=== PATIENT | female | born 1985 | race Caucasian/White ===

== ENCOUNTER 2019-12-17 08:56 | Outpatient (RCR) | payer OTHER, SELFPAY ==
[2019-12-17] MEDS: RHO(D) IMMUNE GLOBULIN 300 MCG SYRINGE IM (13:15)
== END 2020-03-06 13:18 | disposition home or self-care (01) ==
LOC: ANHLAB 08:56
PROVIDERS: PCP Family Medicine; Visit Provider Obstetrics & Gynecology
DX: O46.90 Antepartum hemorrhage, unspecified, unspecified trimester (principal); Z29.13 Encounter for prophylactic Rho(D) immune globulin; O36.0990 Maternal care for other rhesus isoimmunization, unspecified trimester, not applicable or unspecified; Z3A.00 Weeks of gestation of pregnancy not specified
CPT/HCPCS: 36415; 90384; 96372; J2790

== ENCOUNTER 2020-03-07 12:03 | Outpatient (RCR) | payer OTHER, SELFPAY ==
[2020-03-09] MEDS: RHO(D) IMMUNE GLOBULIN 300 MCG SYRINGE IM (13:16)
== END 2020-06-05 23:59 | disposition home or self-care (01) ==
LOC: ANHLAB 12:03
PROVIDERS: PCP Family Medicine; Visit Provider Obstetrics & Gynecology
DX: Z29.13 Encounter for prophylactic Rho(D) immune globulin (principal); O36.0990 Maternal care for other rhesus isoimmunization, unspecified trimester, not applicable or unspecified; Z3A.00 Weeks of gestation of pregnancy not specified
CPT/HCPCS: 36415; 85461; 90384; 96372; J2790

== ENCOUNTER 2020-04-22 10:00 | Outpatient (RCR) | payer OTHER, SELFPAY ==
[2020-04-06 10:51] VITALS: BP 127/77; PULSE 85
[2020-04-22 10:32] VITALS: BP 116/80; PULSE 81
== END 2020-05-24 07:50 | disposition home or self-care (01) ==
LOC: ANHOBOP 10:00
PROVIDERS: PCP Family Medicine; Visit Provider Obstetrics & Gynecology
DX: O36.5930 Maternal care for other known or suspected poor fetal growth, third trimester, not applicable or unspecified (principal); Z3A.32 32 weeks gestation of pregnancy; Z3A.34 34 weeks gestation of pregnancy
CPT/HCPCS: 59025

== ENCOUNTER 2020-04-27 13:28 | Outpatient (CLI) | payer OTHER, SELFPAY ==
[2020-05-02 14:09] LABS: Toxoplasma IgG Antibody <7.20 IU/mL (<7.20)
[2020-05-02 14:33] LABS: Toxoplasma IgM Antibody <8.00 AU/mL (<8.00)
[2020-05-02 16:24] LABS: CMV IgM Antibody <30.00 AU/mL (<30.00)
[2020-05-03 12:38] LABS: CMV IgG Antibody <0.60 U/mL (<0.60)
== END 2020-04-27 13:29 | disposition home or self-care (01) ==
PROVIDERS: PCP Family Medicine
DX: O09.619 Supervision of young primigravida, unspecified trimester (principal)
CPT/HCPCS: 36415; 86644; 86645; 86777

== ENCOUNTER 2020-05-22 14:06 | Outpatient (CLI) | payer OTHER, SELFPAY ==
[2020-05-22 14:34] LABS: Hematocrit 34.4 % (37.0-47.0); Mean Corpuscular HGB Conc 34.9 g/dl (32-36); Mean Corpuscular Hemoglobin 31.8 pg (26-34); Mean Corpuscular Volume 91.2 fl (80-100); Platelet Count Result 237 k/mm3 (150-375); Red Blood Count 3.77 M/mm3 (4.2-5.4); Red Cell Distribution Width 13.5 % (11.5-14.5); White Blood Count 8.9 K/mm3 (4.5-10.0)
[2020-05-23 07:13] LABS: Rapid Plasma Reagin Non-Reactive (NonReactive)
== END 2020-05-22 14:07 | disposition home or self-care (01) ==
PROVIDERS: PCP Family Medicine; Visit Provider Obstetrics & Gynecology
DX: Z01.818 Encounter for other preprocedural examination (principal)
CPT/HCPCS: 36415; 85027; 86592; 86850; 86900; 86901

== ENCOUNTER 2020-05-23 10:06 | Inpatient (IN) | payer OTHER, SELFPAY ==
--- NOTE | 2020-05-04 13:07 | PC.NURSE ---
VERIFIED WITH OR SCHEDULE AND PATIENT--C/S ON 05/23/20 AT 1200 FOR BREECH PATIENT GIVEN REQUISITION FOR LAB DRAW ON 05/22/20 NOT AVAILABLE AT TIME OF PREADMIT
[2020-05-23] VITALS (55 sets, daily range): BP systolic 122–155; BP diastolic 76–101; PULSE 66–120; RESP 14–24; TEMP 36.1–36.9; O2SAT 92–100; BMI 28.3
--- NOTE | 2020-05-23 10:06 | LDADM ---
This patient, Vicki Lopez, was admitted to Labor/Delivery/Recovery 119 on 05/23/20 at 10:06. Plans for labor, pain management and were discussed with patient. Patient/family oriented to hospital policies and general routines including ID bracelet, bed and alarms, visiting hours, pain management, procedures, bathroom and other care routines, personal items, smoking policy, room service/diet and guest tray routines, security routines, and visiting hours. Patient/Family are encouraged to report perceived risks to care and to ask questions if they do not understand what they are told or what they should do. See OBIX for further documentation.
[2020-05-23] MEDS: LACTATED RINGERS 1,000 ML 999 ML IV CONT ×2 (10:44→11:50)
--- NOTE | 2020-05-23 10:45 | WPDANESEPPF ---
Anes - Initial Pre Proc Eval Procedure: Operation Date: 05/23/20 12:00 Proposed Procedures p Repeat Section - Narendra Sandoval MD Date/Time: 05/23/20 10:45 Surgeon: Narendra Sandoval MD Pre Op Diagnosis: Scheduled Patient Data Age: 35 Gender: F Height: Weight: Last Vital Signs Pulse 79 05/23/20 10:43 BP 138/90 05/23/20 10:43 Allergies Allergy/AdvReac Type Severity Reaction Status Date / Time No Known Allergies Allergy Verified 05/04/20 12:42 Home Medications Medication Instructions Recorded Confirmed Type PNV cmb#95-ferrous fumarate-FA 1 tablet PO DAILY 05/04/20 05/04/20 History [] aspirin [Adult Low Dose Aspirin] 81 mg PO DAILY 05/04/20 05/04/20 History cetirizine [Zyrtec] 10 mg PO DAILY 05/04/20 05/04/20 History escitalopram oxalate [Lexapro] 10 mg PO DAILY 05/04/20 05/04/20 History Patient hx anesthesia problems: none Family hx anesthesia problems: none PMFSH Past Medical History Medical History (Updated 05/23/20 @ 10:45 by Greg Yee MD) HTN (hypertension) Surgical History Surgical History (Updated 05/23/20 @ 10:45 by Greg Yee MD) H/O arthroscopic knee surgery Hx of tonsillectomy Family History Family History Father Brain cancer Mother Breast cancer Grandparent Breast cancer Social History Social History Substance use: never Spiritual care concerns: No Anes - Eval Final PreProcedure Day of Procedure 05/23/20 10:45 Patient weight: overweight Heart: regular rate and rhythm Lungs: clear to auscultation Airway: Mallampati scale class 1 Neurological: alert and oriented Last oral intake: >/= 8 hours ASA classification: II Emergent: no Anesthetic plan: proceed Anesthesia type and monitoring: regional spinal and standard monitoring Informed Consent: The patient's anesthetic plan and its attendant risks and benefits were discussed with the patient/family/POA. Questions were solicited and answers provided to the satisfaction of the patient/family/POA.
--- NOTE | 2020-05-23 12:02 | PM.IMHP ---
H&P: HPI History of Present Illness Chief complaint: Scheduled Narrative: 35 y/o G1 at 39 1/7 weeks here for . Has a septate uterus and persistent breech presentation. 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 Growth most recently in 6th percentile. She has been followed by MFM. Review of Systems Review of Systems: All systems reviewed & are unremarkable except as noted in HPI and below PMFSH Past Medical History Medical History HTN (hypertension) Surgical History Surgical History H/O arthroscopic knee surgery Hx of tonsillectomy Family History Family History Father Brain cancer Mother Breast cancer Grandparent Breast cancer Social History Social History Smoking status: Former smoker Smoking end date: 10/05/19 Substance use: never Spiritual care concerns: No Meds Home Medications and Allergies Home Medications Medication Instructions Recorded Confirmed Type PNV cmb#95-ferrous fumarate-FA 1 tablet PO DAILY 05/04/20 05/23/20 History [] aspirin [Adult Low Dose Aspirin] 81 mg PO DAILY 05/04/20 05/23/20 History cetirizine [Zyrtec] 10 mg PO DAILY 05/04/20 05/23/20 History escitalopram oxalate [Lexapro] 10 mg PO DAILY 05/04/20 05/23/20 History Allergies Allergy/AdvReac Type Severity Reaction Status Date / Time No Known Allergies Allergy Verified 05/04/20 12:42 Vital Signs Vital Signs - 24 hr 05/23/20 10:43 05/23/20 10:46 05/23/20 11:01 Pulse Rate 79 81 73 Blood Pressure 138/90 136/86 131/90 05/23/20 11:16 05/23/20 11:31 05/23/20 11:46 Pulse Rate 72 73 66 Blood Pressure 132/83 124/87 124/81 Exam Const: Orientation/consciousness: patient oriented x3 Other: Well-developed, well-nourished female in no acute distress. Neck: Thyroid: thyroid normal Lymphatic: no lymphadenopathy noted (in neck, axilla or inguinal nodes) Resp: Effort & Inspection: normal respiratory effort Auscultation: clear to auscultation bilaterally Cardio: Rate: regular rate Rhythm: regular rhythm Heart sounds: S1 normal heart sound present and S2 normal heart sound present GI: Other: ABD soft, nontender, gravid. Breech presentation on bedside ultrasound. NST reactive. TOCO: no contractions. : General: Yes no CVA tenderness Other: Cervix closed, thick Back/Spine/Pelvis: Back: no CVA tenderness Skin: General skin exam: normal color and no rashes or lesions noted Neuro: General: patient oriented x3 Extrem: Other: Extremities: nontender with no edema Psych: Mental Status: mental status grossly normal Affect: normal affect Assessment and Plan Assessment and plan (1) Breech presentation: Code(s): O32.1XX0 - Maternal care for breech presentation, not applicable or unspecified Status: Acute Assessment and Plan: I have offered primary LTCS. She understands risks of surgery to include risks of anesthesia, risks of pain, infection, bleeding, blood products, thromboembolic phenomena and damage to adjacent structures such as bowel, bladder, ureters, blood vessels and nerves. She understands all these risks and elects to proceed with surgery. (2) Term : Code(s): Z34.90 - Encounter for supervision of normal , unspecified, unspecified trimester Status: Acute (3) Chronic hypertension affecting : Code(s): O10.919 - Unspecified pre-existing hypertension complicating , unspecified trimester Status: Acute (4) Club foot, , affecting care of mother, antepartum: Code(s): O35.8XX0 - Maternal care for other (suspected) abnormality and damage, not applicable or unspecified Status: Acute
[2020-05-23] MEDS: ceFAZolin 2 GM/D5W 50 ML 2 GM/50 ML BAG IVPB (12:10)
[2020-05-23] MEDS: OXYTOCIN 40 UNITS in LACTATED RINGERS 1,000 ML 100 ML IV CONT (12:50)
--- NOTE | 2020-05-23 13:28 | PM.OBPRVD ---
OB - Delivery Note Procedure Delivery date: 05/23/20 Procedure: Procedures Operation Date: 05/23/20 12:00 <No data on this case meets the specified criteria> Primary low transverse delivery. Delivery monitor: external FHT and external uterine Route of delivery: (Primary LTCS) Specimen: Yes (cord blood) Estimated blood loss (mL): 660 Anesthesia type: Spinal Disposition: PACU Complications: None Narrative: The patient was taken to the operating room where she was prepared and draped in the usual sterile fashion in dorsal supine position with a leftward tilt. She received cefazolin preoperatively. Spinal anesthesia was found to be adequate. A Pfannenstiel skin incision was made and carried through to the underlying layer of the fascia. The fascia was incised in the midline and the incision was extended laterally. The fascia was dissected free of the underlying rectus muscles. The rectus muscles were in the midline. The peritoneum was identified, tented up and entered sharply. The peritoneal incision was extended superiorly and inferiorly with good visualization of the bladder. The bladder blade was placed. The vesicouterine peritoneum was identified, tented up and entered sharply. The incision was extended laterally and the bladder flap was developed. The bladder blade was replaced. The uterus was then incised sharply in a transverse fashion along the lower uterine segment. The incision was extended laterally. The 's breech was delivered atraumatically to the sterile field to the level of the scapulae. The arms were swept across the chest and delivered. The head was gently flexed and easily delivered. The nose and mouth were bulb suctioned. After a delay, the cord was clamped and cut. The was handed off the field. Cord blood was collected. The placenta was removed manually and was passed off the field. The uterus was exteriorized and cleared of all clots and debris. The uterus was inspected and found to demonstrate a partial septum. The had occupied the right horn of the uterus. The ovaries and tubes were normal bilaterally. The uterine incision was reapproximated using 0 Monocryl in a running, locked fashion. A second, imbricating layer of the same suture was placed. Excellent hemostasis resulted as did excellent reapproximation of the normal anatomy. The uterus was returned the abdomen. The pelvis was irrigated copiously with warmed normal saline. Rigorous hemostasis was assured. The fascial layer was reapproximated using 0 Vicryl in a running fashion. The skin was closed with a running, subcuticular stitch of 4 0 Vicryl. Dermaflex was applied externally. Sponge, lap, needle and instrument counts were correct. The patient was taken to the recovery room in stable condition. The infant went to the nursery in stable condition. I was present and scrubbed the entire procedure. [place] [facility] Date of : 05/23/20 Time of : 12:38 Weeks of gestation at delivery: 39 gender: Female Weight (pounds): 5 Weight (ounces): 15 presentation: breech cord vessel description: 3 Vessels and Nuchal Cord score one minute: 7 score five minutes: 9
--- NOTE | 2020-05-23 13:33 | PM.OBDSVD ---
DS: Admitting Diagnosis Admitting Diagnosis Admitting Diagnosis: IUP at 39 1/7 weeks Breech presentation Muellerian anomaly Bilateral clubfeet Chronic hypertension <Narendra Sandoval MD - Last Filed: 05/23/20 13:36> DS: Discharge Diagnosis Discharge Diagnosis (1) Club foot, , affecting care of mother, antepartum: Code(s): O35.8XX0 - Maternal care for other (suspected) abnormality and damage, not applicable or unspecified <Narendra Sandoval MD - Last Filed: 05/23/20 13:36> Status: Acute <Narendra Sandoval MD - Last Filed: 05/23/20 13:36> (2) Chronic hypertension affecting : Code(s): O10.919 - Unspecified pre-existing hypertension complicating , unspecified trimester <Narendra Sandoval MD - Last Filed: 05/23/20 13:36> Status: Acute <Narendra Sandoval MD - Last Filed: 05/23/20 13:36> (3) Term : Code(s): Z34.90 - Encounter for supervision of normal , unspecified, unspecified trimester <Narendra Sandoval MD - Last Filed: 05/23/20 13:36> Status: Acute <Narendra Sandoval MD - Last Filed: 05/23/20 13:36> (4) Breech presentation: Code(s): O32.1XX0 - Maternal care for breech presentation, not applicable or unspecified <Narendra Sandoval MD - Last Filed: 05/23/20 13:36> Status: Acute <Narendra Sandoval MD - Last Filed: 05/23/20 13:36> (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 - Other congenital malformations of uterus <Narendra Sandoval MD - Last Filed: 05/23/20 13:36> Status: Acute <Narendra Sandoval MD - Last Filed: 05/23/20 13:36> OB - DS: Summary OB Procedures : None <Andrea Maynard MD - Last Filed: 05/25/20 07:21> OB Procedures Intrapartum: low cervical, transverse <Andrea Maynard MD - Last Filed: 05/25/20 07:21> OB Procedures: : None <Andrea Maynard MD - Last Filed: 05/25/20 07:21> Peripartum Data Laceration description: None <Andrea Maynard MD - Last Filed: 05/25/20 07:21> Procedures: Procedures Operation Date: 05/23/20 12:00 <No data on this case meets the specified criteria> <Narendra Sandoval MD - Last Filed: 05/23/20 13:36> complications: none <Andrea Maynard MD - Last Filed: 05/25/20 07:21> Status at Discharge Functional status at discharge: independent ambulation <Andrea Maynard MD - Last Filed: 05/25/20 07:21> Overall status at discharge: patient is back to baseline <Andrea Maynard MD - Last Filed: 05/25/20 07:21> Time Spent with Patient Time attestation: Total time spent providing and/or coordinating discharge services: <Narendra Sandoval MD - Last Filed: 05/23/20 13:36> Time spent: Less than 30 minutes <Andrea Maynard MD - Last Filed: 05/25/20 07:21> Discharge Plan Discharge Attending physician on discharge: Narendra Sandoval <Narendra Sandoval MD - Last Filed: 05/23/20 13:36> Narendra Sandoval <Andrea Maynard MD - Last Filed: 05/25/20 07:21> Discharging Clinician: Narendra Sandoval <Narendra Sandoval MD - Last Filed: 05/23/20 13:36> Narendra Sandoval <Andrea Maynard MD - Last Filed: 05/25/20 07:21> Patient Disposition: Home, Self-Care <Narendra Sandoval MD - Last Filed: 05/23/20 13:36> Activity: may shower, may drive after 2 weeks and pelvic rest <Narendra Sandoval MD - Last Filed: 05/23/20 13:36> may shower, may drive after 2 weeks and pelvic rest <Andrea Maynard MD - Last Filed: 05/25/20 07:21> Diet: regular <Narendra Sandoval MD - Last Filed: 05/23/20 13:36> regular <Andrea Maynard MD - Last Filed: 05/25/20 07:21> Wound Care Instructions: incision open to air <Narendra Sandoval MD - Last Filed: 05/23/20 13:36> incision open to air <Andrea Maynard MD - Last Filed: 05/25/20 0
--- NOTE | 2020-05-23 16:05 | OBPPTRN ---
Patient transferred to post room # 291 via stretcher. Oriented to unit, room, information board, rooming in, admission packet and security measures. Patient verbalizes understanding.
[2020-05-23] MEDS: DEXTROSE 5%/0.45% SOD CHL 1,000 ML 125 ML (19:23)
[2020-05-24] VITALS: BP 135/80; PULSE 80; RESP 16; TEMP 36.8; O2SAT 99
[2020-05-24] MEDS: KETOROLAC 30 MG/ML VIAL (*BKC) IV PUSH (05:13)
[2020-05-24 05:30] VITALS: BP 123/88; PULSE 88; RESP 16; TEMP 36.4; O2SAT 98; O2SAT 99
[2020-05-24 05:43] LABS: Basophils Absolute Auto 0.1 K/mm3 (0.0-0.1); Basophils Percent Auto 0.4 % (0.2-1.2); Eosinophils Percent Auto 0.2 % (0-4.4); Hematocrit 32.5 % (37.0-47.0); Hemoglobin 11.1 g/dL (12.0-15.0); Immature Granulocyte Absolute 0.07 K/mm3 (0.00-0.031); Immature Granulocyte Percent A 0.5 % (0-0.5); Lymphocytes Absolute Auto 1.65 K/mm3 (0.9-3.2); Lymphocytes Percent Auto 11.5 % (18.3-44.2); Mean Corpuscular HGB Conc 34.2 g/dl (32-36); Mean Corpuscular Hemoglobin 31.7 pg (26-34); Mean Corpuscular Volume 92.9 fl (80-100); Mean Platelet Volume 11.3 fl (7.4-10.4); Monocytes Percent Auto 6.6 % (2.6-8.5); Neutrophils Absolute Auto 11.6 K/mm3 (1.3-6.7); Neutrophils Percent Auto 80.8 % (45.5-73.1); Platelet Count Result 208 k/mm3 (150-375); Red Cell Distribution Width 13.7 % (11.5-14.5); White Blood Count 14.3 K/mm3 (4.5-10.0)
--- NOTE | 2020-05-24 07:22 | WPDANLDNPN2 ---
Anes-Prog Note L&D-Neuraxial Date/Time: 05/24/20 07:22 Neuraxial medications: intrathecal PF morphine Opiod-related complaints: none Patient feedback: Patient satisfied with post-operative pain management.
--- NOTE | 2020-05-24 07:22 | WPDANLDPN2 ---
Anes-Prog Note L&D Date/Time: 05/24/20 07:22 Comfortable throughout: labor and delivery Neuraxial method: epidural Epidural/Spinal procedure site: clean & non-tender Neuro status: Neuro function grossly intact. Cardiovascular status: normal Respiratory status: normal Airway patency: baseline Mental status: baseline Post-Op hydration status: normal Vital Signs: Last Vital Signs Temp 36.4 C L 05/24/20 05:30 Pulse 88 05/24/20 05:30 Resp 16 05/24/20 05:30 BP 123/88 05/24/20 05:30 Pulse Ox 99 05/24/20 05:30 I/O: Intake & Output 05/23/20 05/23/20 05/24/20 15:59 23:59 07:59 Intake Total 3154 500 1000 Output Total 6173 951 1716 Balance 2069 -200 -1050 Post-procedural complaints: none Patient feedback: Patient satisfied with anesthetic care.
[2020-05-24 08:00] VITALS: BP 110/69; PULSE 79; RESP 18; TEMP 37.4
[2020-05-24] MEDS: ESCITALOPRAM OXALATE 10 MG TABLET PO (08:08)
[2020-05-24] MEDS: SIMETHICONE 80 MG TAB.CHEW PO (08:08)
[2020-05-24] MEDS: MULTIVIT/MIN/PREN/FOL AC/IRON TABLET 1 TAB PO (08:08)
[2020-05-24] MEDS: DOCUSATE SODIUM 100 MG CAPSULE PO (08:09)
[2020-05-24 11:46] VITALS: BP 130/78; PULSE 85; RESP 18; TEMP 36.9
--- NOTE | 2020-05-24 13:00 | PC.NURSE ---
Consult with pt., mother is pumping due to transfer. Mother is using her own Spectra pump. Offered hospital pump, mother wishes to use her pump. Mother is pumping one breast at a time. Discussed to pump both to save time and better stimulation. Instructions given on breast pump care and usage, pumping schedule, nipple care, and collection and storage of breast milk. Encouraged breast massage and manual expression to stimulate supply. Assessed patient for correct flange size, placement and draw. Patient verbalizes and demonstrates understanding of instructions.
[2020-05-24] MEDS: IBUPROFEN 600 MG TABLET PO ×2 (13:59→21:45)
--- NOTE | 2020-05-24 16:42 | PM.OBPNVD ---
OB - PN: Subj Subjective Date/time seen: 05/24/20 16:42 Narrative: Pain OK. Tolerating diet. Baby was transferred to [facility]. OB - PN: Obj Data Labs CBC & Chem 7: 05/24/20 05:26 Labs: Laboratory Results - last 24 hr 05/24/20 05:26 WBC 14.3 H RBC 3.50 L Hgb 11.1 L Hct 32.5 L MCV 92.9 MCH 31.7 MCHC 34.2 RDW 13.7 Plt Count 208 MPV 11.3 H Immature Gran % (Auto) 0.5 Neut % (Auto) 80.8 H Lymph % (Auto) 11.5 L [place] % (Auto) 6.6 Eos % (Auto) 0.2 Baso % (Auto) 0.4 Lymph # (Auto) 1.65 [place] # (Auto) 1.0 H Eos # (Auto) 0.0 Baso # (Auto) 0.1 Abs Immat Gran (auto) 0.07 H Absolute Neuts (auto) 11.6 H Absolute Nucleated RBC 0.0 Nucleated RBC % 0.0 OB - PN A/P Plan Comments: A: POD#1, doing well. P: Routine care. Exam Narrative: Exam Narrative: AVSS I/O OK ABD soft, nontender, fundus firm. Incision c/d/i. EXT nontender
--- NOTE | 2020-05-24 17:39 | PC.NURSE ---
Addendum entered by Venita Lake RN 05/24/20 17:40: Pt. left for [facility] at 1500. Original Note: Pt. out on pass to [facility] to see . at side.
[2020-05-24 21:30] VITALS: BP 125/82; PULSE 72; PULSE 85; RESP 14; RESP 18; TEMP 36.7; O2SAT 99
--- NOTE | 2020-05-24 22:44 | PC.NURSE ---
2105 Returned from pass. States baby is doing well.
[2020-05-25] MEDS: SIMETHICONE 80 MG TAB.CHEW PO ×2 (05:57→08:20)
[2020-05-25] MEDS: IBUPROFEN 600 MG TABLET PO (05:58)
[2020-05-25 08:00] VITALS: BP 129/81; PULSE 91; RESP 18; TEMP 36.1
[2020-05-25] MEDS: MULTIVIT/MIN/PREN/FOL AC/IRON TABLET 1 TAB PO (08:20)
[2020-05-25] MEDS: DOCUSATE SODIUM 100 MG CAPSULE PO (08:20)
[2020-05-25] MEDS: ESCITALOPRAM OXALATE 10 MG TABLET PO (08:20)
--- NOTE | 2020-05-25 10:08 | PC.NURSE ---
Self care discharge instructions given including follow up visit date and time. No questions or concerns voiced. at side.
[2020-05-28 09:51] VITALS: BP 145/95; PULSE 79; RESP 18; TEMP 36.6
== END 2020-05-25 11:05 | disposition home or self-care (01) | DRG 787 ==
LOC: ANHLDR 13:35 → ANHOB2 05-25 10:14 → ANHLDR 05-28 10:48 → ANHOB2 05-28 10:48
PROVIDERS: Admitting Provider Obstetrics & Gynecology; PCP Family Medicine; Visit Provider Student in an Organized Health Care Education/Training Program
PROC: 10D00Z1 Extraction of Products of Conception, Low, Open Approach (ICD-10-PCS; CPT 59514; principal; 2020-05-23 12:00)
DX: O32.1XX0 Maternal care for breech presentation, not applicable or unspecified (principal); O10.02 Pre-existing essential hypertension complicating childbirth; Z37.0 Single live birth; Z3A.39 39 weeks gestation of pregnancy; O35.8XX0 Maternal care for other (suspected) fetal abnormality and damage, not applicable or unspecified; O34.03 Maternal care for unspecified congenital malformation of uterus, third trimester; Q51.20 Other doubling of uterus, unspecified; O69.81X0 Labor and delivery complicated by cord around neck, without compression, not applicable or unspecified; O99.344 Other mental disorders complicating childbirth; F41.9 Anxiety disorder, unspecified
CPT/HCPCS: 36415; 85025; 85027; 86592; 86850; 86900; 86901; A9270; J0131; J0690; J1885; J2270; J2274; J2590; J7120

== ENCOUNTER → 2020-12-20 11:08 | Outpatient (CLI) | payer OTHER, SELFPAY ==
[2020-12-20 21:06] LABS: SARS-CoV-2 RNA PCR Negative
== END ==
PROVIDERS: PCP Family Medicine; Visit Provider Physician Assistant
DX: R68.89 Other general symptoms and signs (principal); Z20.822 Contact with and (suspected) exposure to COVID-19
CPT/HCPCS: C9803; U0003; U0005

== ENCOUNTER 2021-10-18 00:25 | Day surgery (SDC) | payer OTHER, SELFPAY ==
[2021-10-01 12:56] VITALS: BMI 23.4
[2021-10-18 08:34] VITALS: BP 113/77; PULSE 81; RESP 20; TEMP 36.8; O2SAT 99; BMI 25.0
[2021-10-18] MEDS: LACTATED RINGERS 1,000 ML 150 ML IV CONT (08:40)
--- NOTE | 2021-10-18 08:43 | WPDANESEPPF ---
Anes - Initial Pre Proc Eval Procedure: Operation Date: 10/18/21 09:30 Proposed Procedures p Esophagogastroduodenoscopy - Mukesh Segura MD Date/Time: 10/18/21 08:43 Surgeon: Mukesh Segura MD Pre Op Diagnosis: dysphagia Patient Data Age: 36 Gender: F Height: 1.7 m Weight: 72.3 kg Last Vital Signs Temp 36.8 C 10/18/21 08:34 Pulse 81 10/18/21 08:34 Resp 20 10/18/21 08:34 BP 113/77 10/18/21 08:34 Pulse Ox 99 10/18/21 08:34 Allergies Allergy/AdvReac Type Severity Reaction Status Date / Time No Known Allergies Allergy Verified 10/18/21 08:34 Home Medications Medication Instructions Recorded Confirmed Type PNV cmb#95-ferrous fumarate-FA 1 tablet PO DAILY 05/04/20 10/02/21 History [] cetirizine [Zyrtec] 10 mg PO DAILY 05/04/20 10/02/21 History escitalopram oxalate [Lexapro] 10 mg PO DAILY 05/04/20 10/02/21 History bupropion HCl 150 mg PO DAILY 10/02/21 10/02/21 History etonogestrel [Nexplanon] 1 implant SUBDERMAL ONCE 10/02/21 10/02/21 History Patient hx anesthesia problems: none Family hx anesthesia problems: none Results Review: All pre-operative results and documents have been reviewed as part of the pre-operative evaluation. [facility] Past Medical History Medical History HTN (hypertension) Surgical History Surgical History (Updated 10/18/21 @ 08:44 by Greg Yee MD) H/O arthroscopic knee surgery History of section Hx of tonsillectomy Family History Family History Father Brain cancer Mother Breast cancer Grandparent Breast cancer Social History Social History Years smoked: 10 Smoking status: Former smoker Tobacco type: cigarettes Smoking end date: 10/05/19 Alcohol intake: current Drinks per week: 6 Substance use: never Living arrangements: with family Spiritual care concerns: No Anes - Eval Final PreProcedure Day of Procedure 10/18/21 08:43 Patient weight: normal Heart: regular rate and rhythm Lungs: clear to auscultation Airway: Mallampati scale class II Neurological: alert and oriented Last oral intake: >/= 8 hours ASA classification: II Emergent: no Anesthetic plan: proceed Anesthesia type and monitoring: general GIVS and standard monitoring Results Review: All pre-operative results and documents have been reviewed as part of the pre-operative evaluation. Informed Consent: The patient's anesthetic plan and its attendant risks and benefits were discussed with the patient/family/POA. Questions were solicited and answers provided to the satisfaction of the patient/family/POA.
--- NOTE | 2021-10-18 09:06 | P.CONGI_ITS ---
Assessment and Plan Assessment and plan (1) Globus sensation: Code(s): R19.8 - Other specified symptoms and signs involving the digestive system and abdomen Status: Acute Assessment and Plan: Patient has a sensation of a pill stuck in her throat consistent with a globus phenomenon. Plan is for EGD to exclude any indications for acid reflux. Also to exclude organic disease in this area. If this is unremarkable a trial of PPI or Elavil may be of benefit. GI Consult Note Consult date/time: 10/18/21 09:06 HPI: Vicki Lopez is a 36 year old female Presents for EGD because of swallowing difficulties. Patient reports over last 2 months has the feeling of a pill being caught in her throat. She is able to swallow normally. She denies any weight loss. She has had no bleeding. She denies any heartburn. She has tried no medications for her discomfort. She presents today for an EGD to exclude organic disease. Review of Systems Review of Systems: All systems reviewed & are unremarkable except as noted in HPI and below PMFSH Past Medical History Medical History (Updated 10/18/21 @ 09:08 by Mukesh Segura MD) HTN (hypertension) Surgical History Surgical History (Updated 10/18/21 @ 08:44 by Greg Yee MD) H/O arthroscopic knee surgery History of section Hx of tonsillectomy Family History Family History Father Brain cancer Mother Breast cancer Grandparent Breast cancer Social History Social History Years smoked: 10 Smoking status: Former smoker Tobacco type: cigarettes Smoking end date: 10/05/19 Alcohol intake: current Drinks per week: 6 Substance use: never Living arrangements: with family Spiritual care concerns: No Meds Home Medications and Allergies Home Medications Medication Instructions Recorded Confirmed Type PNV cmb#95-ferrous fumarate-FA 1 tablet PO DAILY 05/04/20 10/02/21 History [] cetirizine [Zyrtec] 10 mg PO DAILY 05/04/20 10/02/21 History escitalopram oxalate [Lexapro] 10 mg PO DAILY 05/04/20 10/02/21 History bupropion HCl 150 mg PO DAILY 10/02/21 10/02/21 History etonogestrel [Nexplanon] 1 implant SUBDERMAL ONCE 10/02/21 10/02/21 History Allergies Allergy/AdvReac Type Severity Reaction Status Date / Time No Known Allergies Allergy Verified 10/18/21 08:34 Vital Signs Vital Signs - 24 hr 10/18/21 08:34 Temperature 98.2 F Pulse Rate 81 Respiratory Rate 20 Blood Pressure 113/77 Pulse Oximetry 99 Exam Narrative: Physical exam reveals patient be alert. Vital signs stable. HEENT exam is unremarkable. Patient is anicteric. Lungs are clear to a uscultation and percussion. Heart is without murmur or extra sounds. Abdominal exam bowel sounds are present soft nontender with no organomegaly.
[2021-10-18 09:24] VITALS: BP 101/66; PULSE 75; RESP 19; O2SAT 100
[2021-10-18 09:39] VITALS: BP 116/76; PULSE 78; RESP 23; O2SAT 98
[2021-10-18 09:44] VITALS: BP 121/87; PULSE 66; RESP 16; O2SAT 100
== END 2021-10-18 09:58 | disposition home or self-care (01) ==
PROVIDERS: PCP Family Medicine; Visit Provider Internal Medicine Gastroenterology
PROC: 0DJ08ZZ Inspection of Upper Intestinal Tract, Via Natural or Artificial Opening Endoscopic (ICD-10-PCS; CPT 43235; principal; 2021-10-18 09:30)
DX: F45.8 Other somatoform disorders (principal); Z87.891 Personal history of nicotine dependence
CPT/HCPCS: 43235; J2704; J7120

== ENCOUNTER 2022-02-12 02:05 | Day surgery (SDC) | payer OTHER, SELFPAY ==
[2022-02-11 13:54] VITALS: BMI 25.3
--- NOTE | 2022-02-11 14:02 | PC.NURSE ---
Report to the Outpatient Waiting Room, entrance under the green pavilion located off [facility], at time 1100 on date 02/12/22. OR Time: 1300. - You and your visitor will be asked a series of questions to screen for COVID 19 for your protection. - A mask is required within the hospital. One visitor will be allowed to accompany the patient into the hospital. Patients visitor will be instructed to remain with patient at all times or leave the building. We will allow the visitor to come back to the postoperative area when patient is ready. Preoperative COVID Testing Requirements: No COVID Test needed if: (proof is required; if not received patient will have Rapid Test prior to entry) - Patient has received COVID Vaccine at least 14 days prior to procedure date or - Patient has positive COVID test result within last 90 days of surgery date. COVID Test needed if above criteria is not met Patients may have clear liquids (water, carbonated beverages, clear teas, apple juice) until 3 hours prior to surgery with a maximum of 20 ounces. - No food from midnight until time of surgery Take the following medications with a SIP of water the morning of surgery: AUGMENTIN, BUPROPION, LEXAPRO Medications to discontinue per physician: VITAMINS Date to take last dose: NO MORE UNTIL AFTER SURGERY Please no make-up, nail austrian, hairspray, perfume, deodorant, or body powder the day of surgery. No jewelry (including any body piercings) or valuables the day of surgery, leave them at home. Please take a shower or bath the night before, or the morning of, surgery with an antibacterial soap. Wear comfortable, loose fitting clothing. - Jewelry must be removed prior to entering the operating room. Rings and piercings that are not removed may be cut off. - The hospital will not accept responsibility for valuables. - Please leave all valuables, including medications, at home the day of surgery. If you are going home after surgery, a licensed bus driver school must drive you home. - NO public transportation without another adult. - We recommend that an adult stay with you for 24 hours following discharge. - We also recommend that you do not drive, make important decision, drink alcoholic beverages, or take any drugs that were not prescribed by your health care provider for at least 24 hours after your discharge time. Follow any additional instructions given to you from your surgeon. Telephone instructions given to YAIR KUMAR and asked if any additional questions and then verbalized understanding. Patient advised to call surgeon office or pre surgery nurse liaison [phone] if any additional questions.
--- NOTE | 2022-02-11 14:32 | WPDANESEPPF ---
Anes - Initial Pre Proc Eval Procedure: Operation Date: 02/12/22 13:30 Proposed Procedures p Suction Dilatation and Curettage - Narendra Sandoval MD Date/Time: 02/11/22 14:32 Surgeon: Narendra Sandoval MD Pre Op Diagnosis: missed AB Patient Data Age: 36 Gender: F Height: 1.7 m Weight: 73.48 kg Allergies Allergy/AdvReac Type Severity Reaction Status Date / Time No Known Allergies Allergy Verified 02/11/22 13:53 Home Medications Medication Instructions Recorded Confirmed Type PNV cmb#95-ferrous fumarate-FA 1 tablet PO DAILY 05/04/20 02/11/22 History [] cetirizine [Zyrtec] 10 mg PO DAILY 05/04/20 02/11/22 History escitalopram oxalate [Lexapro] 10 mg PO DAILY 05/04/20 02/11/22 History bupropion HCl 150 mg PO DAILY 10/02/21 02/11/22 History amoxicillin-pot clavulanate 1 tablet PO BID 02/11/22 02/11/22 History Patient hx anesthesia problems: none Family hx anesthesia problems: none Results Review: All pre-operative results and documents have been reviewed as part of the pre-operative evaluation. [facility], [facility] Past Medical History Medical History (Updated 02/11/22 @ 14:33 by Baldemar Larkin MD) Anxiety HTN (hypertension) Surgical History Surgical History (Updated 10/18/21 @ 08:44 by Greg Yee MD) H/O arthroscopic knee surgery History of section Hx of tonsillectomy Family History Family History Father Brain cancer Mother Breast cancer Grandparent Breast cancer Social History Social History Years smoked: 15 Smoking status: Former smoker Tobacco type: cigarettes Smoking end date: 10/16/19 Alcohol intake: never Drinks per week: 6 Substance use: never Substance use type: does not use Living arrangements: with family Spiritual care concerns: No Anes - Eval Final PreProcedure Day of Procedure 02/11/22 14:32 Patient weight: normal Heart: regular rate and rhythm Lungs: clear to auscultation and normal air movement Airway: Mallampati scale class II Neurological: alert and oriented Last oral intake: >/= 8 hours ASA classification: II Emergent: no Anesthetic plan: proceed Anesthesia type and monitoring: general GIVS and LMA Results Review: All pre-operative results and documents have been reviewed as part of the pre-operative evaluation. Informed Consent: The patient's anesthetic plan and its attendant risks and benefits were discussed with the patient/family/POA. Questions were solicited and answers provided to the satisfaction of the patient/family/POA.
[2022-02-12] MEDS: ACETAMINOPHEN 500 MG TABLET 1000 MG PO (11:26)
[2022-02-12] MEDS: LACTATED RINGERS 1,000 ML 30 ML IV CONT (11:26)
[2022-02-12 11:32] VITALS: BP 107/69; PULSE 78; RESP 16; TEMP 36.8; O2SAT 99
--- NOTE | 2022-02-12 13:42 | PM.IMHP ---
H&P: HPI History of Present Illness Date/Time: 02/12/22 13:42 36 y/o with LMP 12/11/21, putting her at 9 weeks gestation. Ultrasound exam 2 days ago showed a possible embryo with no obvious cardiac motion. Also having bleeding and cramping. Chief Complaint: Miscarriage Review of Systems Review of Systems: All systems reviewed & are unremarkable except as noted in HPI and below PMFSH Past Medical History Medical History Anxiety HTN (hypertension) Surgical History Surgical History H/O arthroscopic knee surgery History of section Hx of tonsillectomy Family History Family History Father Brain cancer Mother Breast cancer Grandparent Breast cancer Social History Social History Years smoked: 15 Smoking status: Former smoker Tobacco type: cigarettes Smoking end date: 10/16/19 Alcohol intake: never Drinks per week: 6 Substance use: never Substance use type: does not use Living arrangements: with family Spiritual care concerns: No Meds Home Medications and Allergies Home Medications Medication Instructions Recorded Confirmed Type PNV cmb#95-ferrous fumarate-FA 1 tablet PO DAILY 05/04/20 02/11/22 History [] cetirizine [Zyrtec] 10 mg PO DAILY 05/04/20 02/11/22 History escitalopram oxalate [Lexapro] 10 mg PO DAILY 05/04/20 02/11/22 History bupropion HCl 150 mg PO DAILY 10/02/21 02/11/22 History amoxicillin-pot clavulanate 1 tablet PO BID 02/11/22 02/11/22 History Allergies Allergy/AdvReac Type Severity Reaction Status Date / Time No Known Allergies Allergy Verified 02/11/22 13:53 Vital Signs Vital Signs - 24 hr 02/12/22 11:32 Temperature 36.8 C Pulse Rate 78 Respiratory Rate 16 Blood Pressure 107/69 Pulse Oximetry 99 Exam Const: Orientation/consciousness: patient oriented x3 Other: Well-developed, well-nourished female in no acute distress. Neck: Thyroid: thyroid normal Lymphatic: no lymphadenopathy noted (in neck, axilla or inguinal nodes) Resp: Effort & Inspection: normal respiratory effort Auscultation: clear to auscultation bilaterally Cardio: Rate: regular rate Rhythm: regular rhythm Heart sounds: S1 normal heart sound present and S2 normal heart sound present GI: Other: ABD: Soft, nontender, nondistended. No guarding or rebound tenderness. No hepatosplenomegaly. : General: Yes no CVA tenderness Other: Deferred to OR. Back/Spine/Pelvis: Back: no CVA tenderness Skin: General skin exam: normal color and no rashes or lesions noted Neuro: General: patient oriented x3 Extrem: Other: Extremities: nontender with no edema Psych: Mental Status: mental status grossly normal Affect: normal affect Assessment and Plan Assessment and plan (1) Incomplete spontaneous : Code(s): O03.4 - Incomplete spontaneous without complication Status: Acute Assessment and Plan: A: Incomplete SAB. P: Offered expectant management vs. suction D&C. She prefers the latter. She understands risks of surgery to include risks of anesthesia, risks of pain, infection, bleeding, blood products, thromboembolic phenomena and damage to adjacent structures such as bowel, bladder, ureters, blood vessels and nerves. She understands all these risks and elects to proceed with surgery. 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
--- NOTE | 2022-02-12 13:47 | WPDHPUPDATE1 ---
History and Physical Update Update Date/Time: 02/12/22 13:47 History and Physical has been reviewed, including an updated exam of the patient. There are NO changes in the patient's condition. Risks, benefits, and alternatives have been discussed and questions answered. Patient agrees to proceed with procedure.
[2022-02-12 14:26] VITALS: BP 120/80; PULSE 70; RESP 12; O2SAT 99
--- NOTE | 2022-02-12 14:27 | W.PM.PROC2 ---
Procedure Note - Detailed Date of Procedure 02/12/22 Pre-op Diagnosis Incomplete SAB Post-op Diagnosis Same Procedure Performed Dilation and suction curettage. Surgeon Narendra Sandoval MD Anesthesia MAC and Local (paracervical block) Findings POC noted. Description of Procedure The patient was taken to the operating room where she was prepared and draped in the usual sterile fashion in the dorsal lithotomy position. A sterile speculum was placed into the vagina. The anterior lip of the cervix was grasped with a single-tooth tenaculum. Ten mL of 1% lidocaine was administered in a paracervical block. The cervix was gently dilated using Hegar dilators until an 8mm dilator could be passed. The 8mm curved tip suction curette was advanced. Suction curettage was performed and products of conception were aspirated. Sharp curettage was then performed until a good uterine cry was noted, keeping in mind her septate uterus. A final pass with the suction curette was made. The tenaculum was removed. Hemostasis was excellent. Sponge, lap, needle and instrument counts were correct. The patient was taken to the recovery room in stable condition. I was present and scrubbed for the entire procedure. Implants None Estimated Blood Loss 30 Drains No Packing No Pathology Yes (Endometrial curettings) Complications None Condition Stable Disposition PACU
[2022-02-12 14:50] VITALS: BP 112/76; PULSE 65; RESP 14; O2SAT 99
[2022-02-12 15:20] VITALS: BP 126/82; PULSE 73; RESP 16
[2022-02-12] MEDS: RHO(D) IMMUNE GLOBULIN 300 MCG/2 ML SYRINGE IM (15:22)
== END 2022-02-12 15:36 | disposition home or self-care (01) ==
PROVIDERS: PCP Family Medicine; Visit Provider Obstetrics & Gynecology
PROC: (CPT 59812; principal; 2022-02-12 13:30)
DX: O03.4 Incomplete spontaneous abortion without complication (principal); F41.9 Anxiety disorder, unspecified; Z87.891 Personal history of nicotine dependence
CPT/HCPCS: 59812; 36415; 85461; 88305; 90384; A9270; J2250; J2704; J2790; J3010; J7120

== ENCOUNTER 2022-08-14 15:42 | Outpatient (CLI) | payer OTHER, SELFPAY ==
--- NOTE | ~2022-08-14 | US_ITS ---
EXAMINATION: US OB <= 14 weeks fetus DATE: 08/14/2022 16:31 INDICATION: First trimester dating and viability assessment TECHNIQUE: Real-time pelvic transabdominal and transvaginal ultrasound was performed. COMPARISON: None. FINDINGS: The uterus measures 7.9 x 5.2 x 8.8 cm. There is an intrauterine gestational sac. A yolk s ac is identified. heart motion is identified measuring 138 beats per minute (bpm) by M-mode Dop pler. The crown rump length measures 1.5 cm, which correlates with an estimated gestational age of 8 weeks and 0 day(s) (+/-) 5 day(s). The right ovary measures 2.9 x 1.8 x 2.4 cm. The left ovary measures 3.2 x 1.6 x 2.0 cm. There is nor mal vascular flow in the ovaries. There is no free fluid in the pelvis. IMPRESSION: 1. Live intrauterine with an estimated gestational age of 8 weeks and 0 day(s) (+/-) 5 day( s) and an estimated delivery date of 03/26/2023. Reviewed, dictated and finalized at location A. IMPRESSION: 1. Live intrauterine with an estimated gestational age of 8 weeks and 0 day(s) (+/-) 5 day(s) and an estimated delivery date of 03/26/2023.
== END 2022-08-14 15:43 | disposition home or self-care (01) ==
PROVIDERS: PCP Family Medicine; Visit Provider Obstetrics & Gynecology
DX: Z34.91 Encounter for supervision of normal pregnancy, unspecified, first trimester (principal); Z3A.01 Less than 8 weeks gestation of pregnancy
CPT/HCPCS: 76801

== ENCOUNTER 2022-11-07 13:34 | Outpatient (CLI) | payer OTHER, SELFPAY ==
--- NOTE | ~2022-11-07 | US_ITS ---
EXAMINATION: US OB /maternal detail DATE: 11/07/2022 14:58 INDICATION: Assess anatomy, estimated weight assess placental location during second trim radha . TECHNIQUE: Multiple obstetric sonographic images performed. FINDINGS: There is a single living fetus in variable presentation. The placenta is posterior fundal and not lo w-lying. Normal amniotic fluid volume. Amniotic fluid volume is subjectively normal. heart rate of 145 beats per minute. Normal cervical length of 3.3 cm. The following anatomy was identified as normal: Ventricles, choroid plexus, falx and cavum septum pellucidum Cerebellum and cisterna magna Nuchal fold Upper lip Spine Four-chamber heart . Right and left ventricular outflow tract views were not obtained. Diaphragm Stomach Kidneys Bladder 3 vessel cord and cord insertion Bilateral upper and lower extremities including hands and feet are normal but are suboptimally visual ized. The following biometric data were obtained: BPD: 4.5 cm -> 19 weeks 5 days Head circumference: 17.6 cm -> 20 weeks 1 days Abdominal circumference: 16.8 cm -> 21 weeks 6 days Femur length: 3.3 cm -> 20 weeks 3 days Below normal head circumference to abdominal circumference ratio: 1.05 (normal range 1.07-1.25). These measurements are otherwise concordant Estimated weight: 393 g (+/-) 59 g. or 14 oz. (+/-) 2 oz. IMPRESSION: 1. Single living fetus with variable presentation with heart rate of 145 bpm. 2. Biometric data is concordant within 2 days of the previously estimated gestational of 20 weeks 2 d ay(s) with ultrasound estimated date of delivery (SAIGE) of 03/25/2023. Estimated weight is 84th percentile by Hadlock criteria when 03/25/2023 is used as the SAIGE. Please correlate with clinical info rmation or earlier ultrasounds for most accurate SAIGE. 3. Normal survey although left and right ventricular outflow tract views were not obtained and there is suboptimal visualization of the hands and feet. 3. Mildly decreased head circumference to abdominal circumference ratio of 1.05 (normal range 1.07-1. 25). Reviewed, dictated and finalized at location A. [employer] IMPRESSION: 1. Single living fetus with variable presentation with heart rate of 145 bpm. 2. Biometric data is concordant within 2 days of the previously estimated gesta tional of 20 weeks 2 day(s) with ultrasound estimated date of delivery (SAIGE) o f 03/25/2023. Estimated weight is 84th percentile by Hadlock criteria when 03/25/2023 is used as the SAIGE. Please correlate with clinical information or [facility] ultrasounds for most accurate SAIGE. 3. Normal survey although left and right ventricular outflow tract views were not obtained and there is suboptimal visualization of the hands and feet. 3. Mildly decreased head circumference to abdominal circumference ratio of 1.05 (normal range 1.07-1.25).
== END 2022-11-07 13:35 | disposition home or self-care (01) ==
PROVIDERS: PCP Family Medicine; Visit Provider Obstetrics & Gynecology
DX: Z36.89 Encounter for other specified antenatal screening (principal)
CPT/HCPCS: 76805

== ENCOUNTER 2023-01-05 19:54 | Observation (INO) | payer OTHER, SELFPAY ==
[2023-01-05] VITALS (20 sets, daily range): BP systolic 85–102; BP diastolic 54–63; PULSE 95–117; TEMP 36.7; O2SAT 98–100; BMI 27.6
--- NOTE | 2023-01-05 20:15 | OBADM ---
This patient, Vicki Lopez, admitted to the OB room OB Post 116 for observation. Patient/family oriented to hospital policies and general routines including ID bracelet, bed and alarms, visiting hours, pain management, procedures, bathroom and other care routines, personal items, smoking policy, room service/diet, and visiting hours. Patient/Family are encouraged to report perceived risks to care and to ask questions if they do not understand what they are told or what they should do.
--- NOTE | 2023-01-05 20:24 | PC.NURSE ---
Dr Sandoval notified of adm c/o nausea and vomiting. Orders received.
[2023-01-05] MEDS: DEXTROSE 5%/LACTATED RINGERS 1,000 ML 999 ML IV CONT ×2 (21:12→22:06)
[2023-01-05] MEDS: ONDANSETRON INJ 4 MG/2 ML VIAL IV PUSH (21:12)
[2023-01-05 21:21] LABS: Hematocrit 30.2 % (37.0-47.0); Hemoglobin 10.5 g/dL (12.0-15.0); Mean Corpuscular HGB Conc 34.8 g/dl (32-36); Mean Corpuscular Hemoglobin 31.9 pg (26-34); Mean Corpuscular Volume 91.8 fl (80-100); Mean Platelet Volume 9.7 fl (7.4-10.4); Platelet Count Result 194 k/mm3 (150-375); Red Blood Count 3.29 M/mm3 (4.2-5.4); Red Cell Distribution Width 13.2 % (11.5-14.5)
[2023-01-05 21:28] LABS: Appearance Urine Slightly Cloudy (Clear); Bilirubin Urine 1+ (Negative); Blood Urine Negative (Negative); Color Urine Yellow (Yellow); Glucose Urine UA Negative (Negative); Ketones Urine 3+ mg/dL (Negative); Leukocyte Esterase Ur Negative LEU/UL (NEGATIVE); Nitrate Urine Negative (Negative); Protein Urine 2+ mg/dL (Negative); Specific Grav Ur >= 1.030 (1.001-1.035); Urobilinogen Urine 0.2 mg/dL (<2.0)
[2023-01-05 21:33] LABS: Add Urine Microscopic? YES; Bacteria Urine Trace /hpf; Mucus Urine Heavy /lpf; Squamous Epithelial Cell Urine Many /hpf (Few); WBC Urine 0-3 /hpf (0-3)
[2023-01-05 21:34] LABS: Alanine Aminotransferase 19 U/L (6-35); Albumin Level 3.4 g/dL (3.5-5.1); Alkaline Phosphatase 72 U/L (38-126); Anion Gap 6 mmol/L (8-16); Aspartate Amino Transferase 27 U/L (14-36); Bilirubin,Total 0.5 mg/dL (0.2-1.3); Blood Urea Nitrogen 6 mg/dL (7-17); Calcium 7.7 mg/dL (8.4-10.2); Carbon Dioxide 22 mmol/L (22-30); Chloride 105 mmol/L (98-107); Estimated Glomerular Filt Rate > 60; Glucose 99 mg/dL (65-110); Potassium 3.2 mmol/L (3.4-5.0); Sodium 133 mmol/L (137-145)
--- NOTE | 2023-01-05 23:00 | PC.NURSE ---
Patient feeling a little better, no vomiting during hospital stay. Dr Sandoval on the unit and lab results reviewed. OK to dc home after 2 bag of IV fluids.
--- NOTE | 2023-01-12 07:38 | PM.OBTRLD ---
OB - Triage/Final Diagnosis Visit Information Comments/Additional reasons for admission: I have assessed the risk for this patient, Vicki Lopez, and determined that she would benefit from observation care. Evaluation Laboratory results: Laboratory Tests 01/05/23 01/05/23 01/05/23 21:11 21:11 21:11 WBC 8.0 RBC 3.29 L Hgb 10.5 L Hct 30.2 L MCV 91.8 MCH 31.9 MCHC 34.8 RDW 13.2 Plt Count 194 MPV 9.7 Sodium 133 L Potassium 3.2 L Chloride 105 Carbon Dioxide 22 Anion Gap 6 L BUN 6 L Creatinine 0.50 L Estim Creat Clear Calc Not Reportable Estimated GFR > 60 Glucose 99 Calcium 7.7 L Total Bilirubin 0.5 AST 27 ALT 19 Alkaline Phosphatase 72 Total Protein 6.0 L Albumin 3.4 L Urine Color Yellow Urine Appearance Slightly cloudy Urine pH 6.0 Ur Specific [place] >= 1.030 Urine Protein 2+ H Urine Glucose (UA) Negative Urine Ketones 3+ H Ur Blood (Man) Negative Urine Nitrate Negative Urine Bilirubin 1+ H Urine Urobilinogen 0.2 Ur Leukocyte Esterase Negative Urine RBC 11-20 H Urine WBC 0-3 Ur Squamous Epith Cells Many H Urine Bacteria Trace Urine Mucus Heavy H Final Diagnosis (1) Nausea and vomiting during : Code(s): O21.9 - Vomiting of , unspecified Status: Acute
== END 2023-01-05 23:23 | disposition home or self-care (01) ==
PROVIDERS: Admitting Provider Obstetrics & Gynecology; PCP Family Medicine; Visit Provider Obstetrics & Gynecology
DX: O21.9 Vomiting of pregnancy, unspecified (principal); Z3A.29 29 weeks gestation of pregnancy
CPT/HCPCS: 36415; 80053; 81001; 85027; 96361; 96374; G0378; G0379; J2405; J7121

== ENCOUNTER 2023-01-15 14:47 | Observation (INO) | payer OTHER, SELFPAY ==
[2023-01-15 15:00] VITALS: BMI 26.9
[2023-01-15 15:01] VITALS: BP 120/73; PULSE 97
--- NOTE | 2023-01-15 15:08 | LDADM ---
This patient, Vicki Lopez, was admitted to OB Post 112 on 01/15/23 at 14:47. Plans for labor, pain management and were discussed with patient. Patient/family oriented to hospital policies and general routines including ID bracelet, bed and alarms, visiting hours, pain management, procedures, bathroom and other care routines, personal items, smoking policy, room service/diet and guest tray routines, infant security routines, and visiting hours. Patient/Family are encouraged to report perceived risks to care and to ask questions if they do not understand what they are told or what they should do. See OBIX for further documentation.
[2023-01-15 15:15] VITALS: BP 116/65; PULSE 88
[2023-01-15 15:30] VITALS: BP 123/82; PULSE 138
--- NOTE | 2023-01-15 16:05 | PC.NURSE ---
Patient came in with complaints of abdominal cramping and light pink vaginal spotting with wiping after voiding. Patient placed on FHT monitor/toco and given a liter of water to PO hydrate. Patient tapia contractions every 7-10 minutes and states they feel like period cramps. Patient has small brown smear on yajaira pad. Dr. Sandoval called and notified of maternal and status. Orders placed for UA and continued PO hydration. MD coming over to evaluate.
[2023-01-15 16:08] LABS: Appearance Urine Clear (Clear); Bacteria Urine 2+ /hpf; Bilirubin Urine Negative (Negative); Blood Urine 2+ (Negative); Color Urine Yellow (Yellow); Glucose Urine UA Negative (Negative); Ketones Urine Negative (Negative); Leukocyte Esterase Ur Trace LEU/UL (NEGATIVE); Nitrate Urine Negative (Negative); Non Pathogenic Casts 0-2; Protein Urine Negative (Negative); RBC Urine 0-2 /hpf (0-2); Specific Grav Ur 1.011 (1.001-1.035); Squamous Epithelial Cell Urine Occasional /hpf (Few); Urobilinogen Urine 0.2 mg/dL (<2.0); pH Urine 7.5 (5.0-9.0)
[2023-01-15 16:13] LABS: Add Urine Microscopic? YES
--- NOTE | 2023-01-15 16:51 | WPDOBADMIT ---
Obstetrics - Admit Note Admission Note: record reviewed. Additions to the history and/or subsequent changes in the physical findings follow. 37y/o at 31 1/7 weeks here with some brown spotting and cramping. Found to have some contractions. Contractions have resolved after PO hydration. AVSS NST reactive for gestational age. TOCO: contractions initially; have resolved. ABD soft, nontender, gravid EXT nontender Cervix closed, thick. Imaging: Bedside ultrasound exam performed by me shows barnett IUP with good movement. AFV adequate. Fundal placenta. Cervix appears long. A: contractions, scant brown spotting; not in labor. P: Home on pelvic rest. Procardia 10 mg po q 6 hours PRN contractions, #30. F/u as scheduled. labor precautions reviewed.
--- NOTE | 2023-01-15 17:10 | PC.NURSE ---
Dr. Sandoval at bedside at 1635. Reviewed labs and performed bedside ultrasound. Cervical exam performed and cervix found to be closed. Verbal orders for discharge given.
--- NOTE | 2023-01-15 17:38 | PC.NURSE ---
Extended monitoring charted in OBIX.
--- NOTE | 2023-01-18 10:20 | P.DS_ITS ---
DS: Admitting Diagnosis Discharge Date 01/15/23 Admitting Diagnosis labor DS: Discharge Diagnosis Discharge Diagnosis (1) PROM (premature rupture of membranes): Code(s): O42.90 - Premature rupture of membranes, unspecified as to length of time between rupture and onset of labor, unspecified weeks of gestation Status: Acute OB - DS: Summary Hospital Course Hospital Course: Admitted for contractions. Received tocolysis, steroids. Contractions improved, but she then had SROM. Agreed to transfer to [facility] for perinatology / neonatology services. OB Procedures : NST OB Procedures Intrapartum: Other (transfer to tertiary [facility]) OB Procedures: : None Discharge Plan Discharge Attending physician on discharge: Narendra Sandoval Discharging Clinician: Narendra Sandoval Patient Disposition: Acute Care Hospital Activity: as tolerated Diet: as tolerated and regular Discharge Instructions: OB ANTEPARTUM DISCHARGE INSTRUCTIONS This information is given to help you properly care for yourself at home after your discharge from the hospital. Follow these instructions until your doctor tells you otherwise. DIET: Eat Three Well Balanced Meals per Day Drink at Least Eight 8-Ounce Glasses of Caffeine-Free Beverages Daily ACTIVITY: As Tolerated RETURN TO LABOR AND DELIVERY IF YOU HAVE: Any Change In Baby's Normal Movement Pattern Any Leakage of Fluid Contractions 5-7 Minutes Apart with Increasing Intensity Vaginal Bleeding Warning Signs of Pre-term Labor as per Handout Contractions may feel like abdominal pain, tightening, cramping, pressure, back ache, or thigh ache. OTHER INSTRUCTIONS: FOLLOW-UP CARE: Keep Next Scheduled Appointment To see Dr. Lori Aldridge released to patient or family? N/A Medications from home returned to patient? N/A I Acknowledge Receipt of and Understand the Above Instructions IF YOU HAVE ANY QUESTIONS REGARDING THESE INSTRUCTIONS, PLEASE CALL [phone]. IF PROBLEMS ARISE, CALL YOUR PROVIDER. IF EMERGENCY CARE IS NEEDED, [facility] EMERG[facility]Y ROOM IS AVAILABLE 24 HOURS A DAY. Follow-up/Referrals: Narendra Sandoval MD [Physician] - Discharge Medications: New nifedipine 10 mg capsule 10 mg PO Q6H PRN (Reason: contractions) Qty: 30 0RF Continued cetirizine [Zyrtec] 10 mg Tablet 10 mg PO DAILY escitalopram oxalate [Lexapro] 10 mg Tablet 10 mg PO DAILY PNV cmb#95-ferrous fumarate-FA [] 28 mg iron- 800 mcg Tablet 1 tablet PO DAILY bupropion HCl 150 mg tablet extended release 24 hr 150 mg PO DAILY aspirin 81 mg Tablet,Chewable 81 mg PO DAILY Date of admission: 01/15/23 14:47 Primary Care Provider: Saurabh Gonzales Admitting Provider: Narendra Sandoval Attending physician on admission: Narendra Sandoval Condition: Stable
== END 2023-01-15 17:25 | disposition short-term general hospital (02) ==
PROVIDERS: Admitting Provider Obstetrics & Gynecology; PCP Family Medicine; Visit Provider Obstetrics & Gynecology
DX: O42.913 Preterm premature rupture of membranes, unspecified as to length of time between rupture and onset of labor, third trimester (principal); Z3A.31 31 weeks gestation of pregnancy; O26.893 Other specified pregnancy related conditions, third trimester; R10.9 Unspecified abdominal pain
CPT/HCPCS: 36415; 81001; 85461; 86850; 86900; 86901; 87077; 87086; 87088; 90384; 96372; G0378; G0379; J2790

== ENCOUNTER 2023-01-15 19:14 | Outpatient (CLI) | payer OTHER, SELFPAY ==
[2023-01-15] MEDS: RHO(D) IMMUNE GLOBULIN 300 MCG/2 ML SYRINGE IM (19:47)
== END 2023-01-15 19:15 | disposition home or self-care (01) ==
LOC: ANHOBOP 19:22
PROVIDERS: PCP Family Medicine; Visit Provider Obstetrics & Gynecology
DX: Z29.13 Encounter for prophylactic Rho(D) immune globulin (principal)
CPT/HCPCS: 96372

== ENCOUNTER 2023-01-16 00:38 | Observation (INO) | payer OTHER, SELFPAY ==
[2023-01-16] VITALS (58 sets, daily range): BP systolic 109–144; BP diastolic 65–88; PULSE 89–114; RESP 16; TEMP 36.5–36.6; O2SAT 95–100; BMI 26.9
[2023-01-16] MEDS: MAGNESIUM SULF 4 GM/WATER100ML 4 GM/100 ML BAG IVPB (01:33)
[2023-01-16] MEDS: LACTATED RINGERS 1,000 ML 75 ML IV CONT (01:34)
[2023-01-16] MEDS: AMPICILLIN 2 GM/NS 100 ML 2 GM/100 ML BAG IVPB (01:35)
[2023-01-16] MEDS: BETAMETHASONE SOD PHOS/ACETATE 30 MG/5 ML VIAL 12 MG IM (01:35)
[2023-01-16 01:40] LABS: Alanine Aminotransferase 26 U/L (6-35); Albumin Level 3.6 g/dL (3.5-5.1); Alkaline Phosphatase 103 U/L (38-126); Anion Gap 4 mmol/L (8-16); Aspartate Amino Transferase 24 U/L (14-36); Bilirubin,Total 0.4 mg/dL (0.2-1.3); Blood Urea Nitrogen 5 mg/dL (7-17); Carbon Dioxide 26 mmol/L (22-30); Chloride 106 mmol/L (98-107); Estimated Glomerular Filt Rate > 60; Glucose 89 mg/dL (65-110); Sodium 136 mmol/L (137-145)
--- NOTE | 2023-01-16 01:50 | OBADM ---
This patient, Vicki Lopez, admitted to the OB room OB Post 117 for observation. Patient/family oriented to hospital policies and general routines including ID bracelet, bed and alarms, visiting hours, pain management, procedures, bathroom and other care routines, personal items, smoking policy, room service/diet, and visiting hours. Patient/Family are encouraged to report perceived risks to care and to ask questions if they do not understand what they are told or what they should do.
[2023-01-16] MEDS: MAGNESIUM SULF 20GM/WATER500ML 500 ML 50 MG IV CONT (01:59)
[2023-01-16 03:13] LABS: Basophils Absolute Auto 0.1 K/mm3 (0.0-0.1); Basophils Percent Auto 0.7 % (0.2-1.2); Eosinophils Absolute Auto 0.1 K/mm3 (0-0.3); Eosinophils Percent Auto 0.7 % (0-4.4); Hemoglobin 11.4 g/dL (12.0-15.0); Immature Granulocyte Absolute 0.26 K/mm3 (0.00-0.031); Immature Granulocyte Percent A 1.9 % (0-0.5); Lymphocytes Absolute Auto 2.13 K/mm3 (0.9-3.2); Lymphocytes Percent Auto 15.5 % (18.3-44.2); Mean Corpuscular HGB Conc 34.5 g/dl (32-36); Mean Corpuscular Hemoglobin 31.9 pg (26-34); Mean Corpuscular Volume 92.4 fl (80-100); Monocytes Absolute Auto 1.5 K/mm3 (0.1-0.6); Monocytes Percent Auto 10.5 % (2.6-8.5); Neutrophils Absolute Auto 9.8 K/mm3 (1.3-6.7); Neutrophils Percent Auto 70.7 % (45.5-73.1); Platelet Count Result 301 k/mm3 (150-375); Red Blood Count 3.57 M/mm3 (4.2-5.4); Red Cell Distribution Width 13.2 % (11.5-14.5); White Blood Count 13.8 K/mm3 (4.5-10.0)
--- NOTE | 2023-01-16 04:12 | PM.IMHP ---
H&P: HPI History of Present Illness Date/Time: 01/16/23 04:12 Chief Complaint: Levi broaretha. Narrative: 37 y/o at 30 2/7 weeks with gush of fluid at midnight. Presented to L&D where [facility] was positive for rupture of membranes. She has had subsequent development of contractions. She had been triaged yesterday for cramping and brown vaginal spotting, but cervix was closed and some contractions resolved with PO hydration. Her cervix was closed and thick, with no overt bleeding. Bedside ultrasound by me showed IUP in vertex presentation with fundal placenta and adequate AFV. She was scheduled to go out of town, so had been prescribed nifedipine 10 mg prn contractions. She took one dose on leaving the hospital after triage last evening. remarkable for absent nasal bone on ultrasound exam, with normal NIPT. Review of Systems Review of Systems: All systems reviewed & are unremarkable except as noted in HPI and below PMFSH Past Medical History Medical History Acne Allergic rhinitis, unspecified Eczema Essential (primary) hypertension Gastro-esophageal reflux disease without esophagitis Generalized anxiety disorder HTN (hypertension) IBS (irritable bowel syndrome) Menorrhagia Surgical History Surgical History H/O arthroscopic knee surgery right 2001 History of section Hx of tonsillectomy 08/01/2010 Family History Family History Father Brain cancer Mother Breast cancer Grandparent Breast cancer Social History Social History Years smoked: 15 Smoking status: Former smoker Tobacco type: cigarettes Second hand tobacco smoke exposure: No Smoking end date: 10/16/19 Alcohol intake: former Substance use: never Substance use type: does not use Lack of Transportation: No Lack of Food: Never True Current Housing: I Have Housing Concerned About Future Housing: No Difficulty Paying Gas/Electric Bills: No Difficulty Paying for Meds: No Currently Unemployed: No Difficulty w/ Childcare or Family Care: No Living arrangements: with family Occupation/Education: occupation Gender identity (if verbalized by the patient): Female Sexual Orientation (if Verbalized by the Patient): Straight or Heterosexual Spiritual care concerns: No Meds Home Medications and Allergies Home Medications Medication Instructions Recorded Confirmed Type cetirizine 10 mg tablet (Zyrtec) 10 mg PO DAILY 05/04/20 01/15/23 History escitalopram oxalate 10 mg tablet 10 mg PO DAILY 05/04/20 01/15/23 History (Lexapro) vit no.95-ferrous 1 tablet PO DAILY 05/04/20 01/15/23 History fumarate 28 mg-folic acid 800 mcg tablet () bupropion HCl 150 mg 24 hr tablet, 150 mg PO DAILY 10/02/21 01/15/23 History extended release aspirin 81 mg chewable tablet 81 mg PO DAILY 01/15/23 01/15/23 History nifedipine 10 mg capsule 10 mg PO Q6H PRN contractions #30 01/15/23 Rx caps Allergies Allergy/AdvReac Type Severity Reaction Status Date / Time atomoxetine [From Strattera] AdvReac Dizziness Verified 01/15/23 15:11 Vital Signs Vital Signs - 24 hr 01/16/23 00:48 01/16/23 01:38 01/16/23 01:40 Temperature Pulse Rate 113 H 91 97 Respiratory Rate Blood Pressure 127/82 117/76 115/77 Pulse Oximetry 100 Oxygen Delivery 01/16/23 01:45 01/16/23 01:50 01/16/23 01:55 Temperature Pulse Rate 101 H 93 100 Respiratory Rate Blood Pressure 120/81 123/75 124/76 Pulse Oximetry Oxygen Delivery 01/16/23 02:00 01/16/23 02:05 01/16/23 02:10 Temperature Pulse Rate 100 92 100 Respiratory Rate Blood Pressure 119/78 120/72 144/79 H Pulse Oximetry Oxygen Delivery 01/16/23 02:15 01/16/23 02:30 03
--- NOTE | 2023-02-04 21:25 | P.PNOB_ITS ---
OB - Triage/Final Diagnosis Visit Information Comments/Additional reasons for admission: I have assessed the risk for this patient, Vicki Lopez, and determined that she would benefit from observation care. Evaluation Laboratory results: Laboratory Tests 01/16/23 01/16/23 01:18 01:19 WBC 13.8 H RBC 3.57 L Hgb 11.4 L Hct 33.0 L MCV 92.4 MCH 31.9 MCHC 34.5 RDW 13.2 Plt Count 301 D MPV 10.0 Immature Gran % (Auto) 1.9 H Neut % (Auto) 70.7 Lymph % (Auto) 15.5 L [place] % (Auto) 10.5 H Eos % (Auto) 0.7 Baso % (Auto) 0.7 Lymph # (Auto) 2.13 [place] # (Auto) 1.5 H Eos # (Auto) 0.1 Baso # (Auto) 0.1 Abs Immat Gran (auto) 0.26 H Absolute Neuts (auto) 9.8 H Absolute Nucleated RBC 0.0 Nucleated RBC % 0.0 Sodium 136 L Potassium 4.0 Chloride 106 Carbon Dioxide 26 Anion Gap 4 L BUN 5 L Creatinine 0.40 L Estim Creat Clear Calc Not Reportable Estimated GFR > 60 Glucose 89 Calcium 9.0 Total Bilirubin 0.4 AST 24 ALT 26 Alkaline Phosphatase 103 Total Protein 6.0 L Albumin 3.6 Final Diagnosis (1) PROM (premature rupture of membranes): Code(s): O42.90 - Premature rupture of membranes, unspecified as to length of time between rupture and onset of labor, unspecified weeks of gestation Status: Acute
== END 2023-01-16 06:13 | disposition short-term general hospital (02) ==
PROVIDERS: Admitting Provider Obstetrics & Gynecology; PCP Family Medicine; Visit Provider Obstetrics & Gynecology
DX: O42.913 Preterm premature rupture of membranes, unspecified as to length of time between rupture and onset of labor, third trimester (principal); Z3A.30 30 weeks gestation of pregnancy; Z87.891 Personal history of nicotine dependence; Z79.1 Long term (current) use of non-steroidal anti-inflammatories (NSAID); Z79.899 Other long term (current) drug therapy
CPT/HCPCS: 36415; 80053; 85025; 96365; 96367; 96372; 96375; G0378; G0379; J0290; J0456; J0702; J3475; J7120

== ENCOUNTER 2024-10-08 09:21 | Emergency (ER) | payer OTHER, SELFPAY ==
[2024-10-08 09:47] VITALS: BP 128/89; PULSE 92; RESP 18; TEMP 36.8; O2SAT 98
--- NOTE | 2024-10-08 10:03 | ED_ITS ---
HPI - URI/Sore Throat General Chief Complaint: Upper Respiratory Infection Stated Complaint: cold symptoms Time Seen by Provider: 10/08/24 10:23 Source: patient, RN notes reviewed and old records reviewed Mode of arrival: ambulatory Limitations: no limitations History of Present Illness HPI Narrative: 39-year-old female presents to the [facility] with sinus pressure, bilateral ear pressure since yesterday. Reports a sore throat Symptoms started yesterday. Patient denies. Denies fevers. Onset (ago): day(s) (1) Related Data Home Medications Medication Instructions Recorded Confirmed cetirizine 10 mg tablet (Zyrtec) 10 mg PO DAILY 05/04/20 10/08/24 norethindrone (contraceptive) 0.35 0.35 mg PO DAILY 01/08/24 10/08/24 mg tablet Allergies Allergy/AdvReac Type Severity Reaction Status Date / Time atomoxetine [From Strattera] AdvReac Dizziness Verified 10/08/24 10:07 Review of Systems Review of Systems: All systems reviewed & are unremarkable except as noted in HPI and below Constitutional: Constitutional: Reports as per HPI ENT: Reports system reviewed and no additional complaints, except as documented Cardiovascular: Cardiovascular: Reports no additional cardiovascular complaints, Denies chest pain and Denies dyspnea Respiratory: Respiratory: Reports no additional respiratory complaints, Denies chest congestion, Denies cough and Denies dyspnea Gastrointestinal: Gastrointestinal: Reports no additional gastrointestinal complaints, Denies abdominal pain, Denies nausea and Denies vomiting Musculoskeletal: Musculoskeletal: Reports no additional musculoskeletal complaints Integumentary/Breasts: Skin/Breast: Reports system reviewed and no additional complaints, except as docu PMFSH Past Medical History Medical History Acne Allergic rhinitis, unspecified Eczema Essential (primary) hypertension Gastro-esophageal reflux disease without esophagitis Generalized anxiety disorder HTN (hypertension) IBS (irritable bowel syndrome) Surgical History Surgical History H/O arthroscopic knee surgery right 2001 History of section Hx of tonsillectomy 08/01/2010 Family History Family History Father Brain cancer Mother Breast cancer Grandparent Breast cancer Social History Social History Years smoked: 15 Smoking status: Former smoker Tobacco type: cigarettes Second hand tobacco smoke exposure: No Smoking end date: 10/16/19 Alcohol intake: current Drinks per week: 1 Substance use: never Substance use type: does not use Do You Feel Safe in your Home?: Yes Lack of Transportation: No Lack of Food: Never True Current Housing: I Have Housing Concerned About Future Housing: No Difficulty Paying Gas/Electric Bills: No Difficulty Paying for Meds: No Currently Unemployed: No Education: High School Diploma/GED Difficulty w/ Childcare or Family Care: No Living arrangements: with family Occupation/Education: occupation Gender identity (if verbalized by the patient): Female Sexual Orientation (if Verbalized by the Patient): Straight or Heterosexual Spiritual care concerns: No Comments At the time of my signature, I reviewed and agree with the nursing past medical, surgical, social, and family history. There is no relevant family history pertinent to the patient complaint. Exam Const: General: cooperative, healthy appearing, comfortable, no acute distres s, well developed, alert and well nourished Nutritional Appearance: well nourished Orientation/consciousness: patient oriented x3 Limitations: no limitations HENMT: Head: normal to inspection Ears: hearing grossly normal bilaterally, external ears normal, TM's normal bilaterally, EAC's normal, mastoids normal and no periauricular adenopathy Face/Nose/Sinus: Normal external nose present, normal facial exam and face symmetric Face and sinus: normal facial exam and face symmetric Throat: uvula midline, tonsils absent and no uvular edema Eyes: General: appearance normal, both eyes and all related structures Alignment and Position: alignment normal Periorbital: periorbital findings normal Neck: Neck: normal visual inspection, full ROM, no lymphadenopathy and no meningeal signs Chest: Chest palpation & inspection: normal inspection of the chest Resp: Effort & Inspection: normal respiratory effort and able to speak in complete sentences Auscultation: clear to auscultation bilaterally, no crackles, no rales, no rhonchi and no wheezes Cardio: Rate: regular rate Skin: General skin exam: normal color and no rashes or lesions noted Lesions: no lesions Rashes: no rashes Wounds: no wounds Neuro: General: patient oriented x3, gait normal, tone normal, moves all extremities and no meningeal signs Cognition (Neuro): normal cognition Speech: normal speech Gait exam (Neuro): Normal gait present Extrem: General: normal to inspection, full ROM, capillary refill normal and normal gait Psych: Appearance: grossly normal and well kempt Mental Status: mental status grossly normal Speech and movement: Normal speech and movement present and Clear speech present Affect: normal affect Attitude: cooperative Course Course Level of Care: Express Care Visit Vital Signs Vital signs: Vital Signs Temperature 98.3 F 10/08/24 09:47 Pulse Rate 92 10/08/24 09:47 Respiratory Rate 18 10/08/24 09:47 Blood Pressure 128/89 10/08/24 09:47 Pulse Oximetry 98 10/08/24 09:47 Oxygen Delivery Room Air 10/08/24 09:47 Temperature 98.3 F 10/08/24 09:47 Pulse Rate 92 10/08/24 09:47 Respiratory Rate 18 10/08/24 09:47 Blood Pressure 128/89 10/08/24 09:47 Pulse Oximetry 98 10/08/24 09:47 Oxygen Delivery Room Air 10/08/24 09:47 Reviewed MDM - URI/Sore Throat MDM Narrative Medical decision making narrative: Patient sitting up. Nontoxic, vitals stable. Patient in no acute distress. Patient presents with 1 day history of. No acute findings noted on exam. Patient appropriate for outpatient treatment and follow-up Discharge instructions reviewed with patient, as well as provided in writing per nursing staff. The instructions also include specific and strict return/GO TO THE ER as well as f/u information. All questions have been answered, and the patient deny any further questions with discharge and discharge plan. Some parts of this dictation were generated by voice recognition software and may contain typographical and/or grammatical inaccuracies. Differential Diagnosis Differential diagnosis: Likely upper respiratory infection, otitis media, sinusitis, viral infection and pharyngitis Critical Care Time Critical Care Time Critical Care Time: No Discharge Plan Discharge Clinical Impression: Upper respiratory infection Patient Disposition: Home, Self-Care Condition: Stable Instructions: Antibiotic Form, Upper Respiratory Infection (ED) Additional Instructions: Your symptoms are likely due to a viral illness, which is not treated with antibiotics. Viral symptoms can be present for up to a few weeks. -Alternate Tylenol and Motrin per package directions for fever or pain. -Antihistamine medication such as Benadryl at night and Zyrtec/Claritin/Crystal during the day can help improve symptoms. -doing daily nasal irrigations can help relieve pressure your sinuses. Things like a Neti pot -Use Flonase twice a day for 5 days then daily to help reduce the inflammation and dry up your sinuses. -You can also use Mucinex. Be sure to drink plenty of water with this medication at least 8 ounces with every dose and it is important to drink 8 to 10 glasses of water per day. Water is a natural decongestant -Eat and drink things that are easy to swallow, like tea or soup, or popsicles. -Oral rinses such as: Salt water gargles and/or may use topical anesthetic (eg. Chloraseptic spray) or lozenges to relieve dryness or throat pain). -Frequent hand washing or hand community relations officer is one of the best ways to prevent spread of infection. -Using a vaporizer or humidifier at night will also help thin secretions and help with coughing up phlegm. -Follow up with primary care provider in 7-10 days if condition is not improving - For new or worsening symptoms go directly to the nearest ER Patient Language: Georgian Prescriptions: No Action norethindrone (contraceptive) 0.35 mg tablet 0.35 mg PO DAILY fluconazole 150 mg tablet 150 mg PO DAILY Qty: 3 0RF escitalopram oxalate 20 mg tablet 20 mg PO DAILY Qty: 30 0RF cetirizine [Zyrtec] 10 mg Tablet 10 mg PO DAILY Follow-up/Referrals: Saurabh Gonzales MD [Primary Care Provider] - 2 Weeks ([facility] care follow up ) Time of Disposition: 10:33
== END 2024-10-08 10:45 | disposition home or self-care (01) ==
PROVIDERS: Emergency Provider Nurse Practitioner; PCP Family Medicine
DX: J06.9 Acute upper respiratory infection, unspecified (principal); Z87.891 Personal history of nicotine dependence; I10 Essential (primary) hypertension
CPT/HCPCS: 99211; G0463

== ENCOUNTER 2025-09-25 11:10 | Outpatient (CLI) | payer OTHER, SELFPAY ==
--- OUTSIDE RECORDS SUMMARY | 2025-09-25 12:00 | XMS_ITS | Clinical Summary ---
Author Organization [facility] [place] [address] Address [address] [place] [address] Care Team Providers Care Java Web Services Developer Name Role Phone Saurabh Gonzales MD Primary Care Provider [phone] Social History Tobacco Use Types Packs/Day Years Used Date Smoking Tobacco: Never Assessed Personal Safety Answer Date Recorded Getting School Help Needed Not on file 01/30 Comments Unknown Sex and Gender Information Value Date Recorded Sex Assigned at Not on file Legal Sex Female 7:39 AM CDT Gender Identity Not on file Sexual Orientation Not on file Plan of Treatment Not on file Insurance [employer] Care Teams Java Web Services Developer Relationship Specialty Start Date End Date Saurabh Gonzales MD [address] [place] [address] PCP - General Family Medicine 04/28/18
--- OUTSIDE RECORDS SUMMARY | 2025-09-25 12:00 | XMS_ITS | Clinical Summary ---
Author Organization [facility] Address [address] [place] [address] Care Team Providers Care Flap Presser Name Role Phone Saurabh Gonzales MD Primary Care Provider [phone] Source Comments [facility],non-owned Affiliates and Associated Physician Practices is amultiple site organization consisting of ambulatory clinics and hospital sitesin [place], [place], [place] and [place]. This disclosure is being madepursuant to the Care Everywhere program and may not contain all information available regarding this patient. Last updated 18.[facility] Allergies No known active allergies Medications * Be aware that medications may not be up to date on this document. Alwaysverify current medications with the patient. cetirizine (ZYRTEC) 10 MG tabletIndicatio ns:Seasonal Allergic Rhinitis Take 1 (one) tablet by mouth once daily Reasons: Hayfever Active escitalopram (LEXAPRO) 10 MG tabletIndicatio ns:Generalized Anxiety Disorder Take 1 (one) tablet by mouth once daily Reasons: Generalized Anxiety Disorder Active buPROPion XL 24hr (Wellbutrin-XL) 300 MG tablet Take 1 (one) tablet by mouth every morning Active ibuprofen (Motrin) 600 MG tablet Take 1 (one) tablet by mouth every 6 hours as needed for Pain 30 tablet 3 Active acetaminophen (Tylenol) 500 MG capsule Take 2 (two) capsules by mouth every 6 hours as needed for Fever or Pain 50 capsule 3 Active oxyCODONE, immediate release, (Roxicodone) 5 MG tabletIndicatio ns: premature rupture of membranes (PPROM) with unknown onset of labor (HCC) Take 1 (one) tablet by mouth every 6 hours as needed for Pain 12 tablet 3 Active Additional Information Patient not taking.Reported on 01/30/2023 docusate sodium (Colace) 100 MG capsule Take 1 (one) capsule by mouth once daily 60 capsule 3 Active plus iron (Natatab) 29-1 MG tablet Take 1 (one) tablet by mouth once daily 30 tablet 3 3 Active polyethylene glycol 3350 (Miralax) 17 GM/SCOOP powder Take 17 (seventeen) g by mouth once daily 238 g 3 Active Active Problems Problem Noted Date Diagnosed Date premature rupture of membranes (PPROM) with unknown onset of labor 01/16/2023 Supervision of high-risk of young prim igravida 04/25/2020 Chronic hypertension 04/10/2020 Overview (04/10/2020): Stopped labetalol and PNR B/P's noted systolic 108-122/ landon 69-76 Assessment & Plan (04/25/2020 11:58 AM CDT): Blood pressure normotensive without antihypertensive medication. Maternal Medicine recommendations: 1. continue regular assessment of maternal ambulatory blood pressures--to be reviewed by box puller 2. weekly NST/BPP 3. Delivery initiation at 39 weeks 4. Would benefit from Resolved Problems Problem Noted Date Diagnosed Date Resolved Date Poor growth, affecting management of mother, antepartum condition or complication 04/10/2020 01/30/2023 Overview (04/25/2020): growth restriction noted on outside scan (breech, bilateral club feett) Assessment & Plan (04/25/2020 11:58 AM CDT): growth less than expected but not in the range of growth restriction today--improvement in abdominal circumference growth. No signs of placental insufficiency. Maternal Medicine recommendations: 1. to have previously requested CMV and toxoplasma studies drawn today 2. appropriate to have weekly BPP/NST, rather than twice weekly testing 3. no current indication for delivery prior to 39 weeks Immunizations Immunization Administration Dates Next Due MMR 01/24/2023() Rho D Immune Globulin 01/24/2023,01/16/2023() TDAP (7yrs+) 01/24/2023 Family History Medical History Relation Name Comments Cancer - Other Father Cancer - Breast Maternal Grandmother Cancer - Breast Mother Relation Name Status Comments Brother Alive Father Maternal Grandfather Maternal Grandmother Mother Alive Social History Tobacco Use Types Packs/Day Years Used Date Smoking Tobacco: Former Cigarettes 0.5 10 0 04/11/2010 - 10/12/2019 Smokeless Tobacco: Never Alcohol Use Standard Drinks/Week Comments Not Currently 0 (1 standard drink = 0.6 oz pur e alcohol) Overall Financial Resource Strain (CARDIA) Answe r Date Recorded How hard is it for you to pa y for the very basics like food, housing, medical care, and heating? Not hard at all 01/16/2023 [facility] - Occupational Stress Questionnaire Answer Date Recorded Do you feel stress - tense, restless, nervous, or anxious, or unable to sleep at night because your mind is troubled all the time - these days? Only a little 01/16/2023 Hunger Vital Sign Answer Date Recorded Within the past 12 months, y ou worried that your food would run out before you got the money to buy more. Never true 01/17/20 23 Within the past 12 months, t he food you bought just didn't last and you didn't have money to get more. Never true 01/16/2023 PRAPARE - Transportation Answer Date Re corded In the past 12 months, has l ack of transportation kept you from medical appointments or from getting medications? No 01/2023 In the past 12 months, has l ack of transportation kept you from meetings, work, or from getting things needed for daily living? No 01/16/2023 Housing Stability Vital Sign Answer Hawk e Recorded In the last 12 months, was t here a time when you were not able to pay the mortgage or rent on time? No 01/16/2023 In the last 12 months, how many places have you lived? 1 01/16/2023 In the last 12 months, was t here a time when you did not have a steady place to sleep or slept in a fci (including now)? No 01/16/2023 [place] Depression Scale Answer Date Recorded [place] Depression Scale Total 2 01/31/2023 The thought of harming myself has occurred to me . Never 01/31/2023 Comments No Sex and Gender Information Value Date Recorded Sex Assigned at Not on file Legal Sex Female 11:05 AM CDT Gender Identity Not on file Sexual Orientation Not on file Last Filed Vital Signs Vital Sign Reading Time Taken Comments Blood Pressure 131/92 01/30/2023 2:20 PM CDT Pulse 81 01/30/2023 2:20 PM CDT Temperature 36.7 C (98 F) 01/26/2023 8:25 AM CDT Respiratory Rate 16 01/25/2023 10:31 PM CDT Oxygen Saturation 100% 01/25/2023 10:31 PM CDT Inhaled Oxygen Concentration - - Weight 69.4 kg (153 lb) 01/30/2023 2:15 PM CDT Height 170.2 cm (5' 7) 01/18/2023 7:50 AM SOUND ENGINEER Body Mass Index 23.96 01/18/2023 7:50 AM SOUND ENGINEER Plan of Treatment Health Maintenance Due Date Last Done Comments LIPID TESTING 1984 MAMMOGRAM 1984 HIV SCREENING 1999 HEPATITIS C SCREENING 05/09/2002 HEPATITIS B VACCINE (1 of 3 - 19+ 3-dose series) 2003 PAP SMEAR 2005 HPV VACCINE (1 - 3-dose SCDM series) 2011 DEPRESSION SCREENING 11/16/2024 COVID-19 VACCINE ( season) 2025 11/10/2021, 12/27/2020, 11/29/2020 INFLUENZA VACCINE (#1) 2025 2, 09/14/2020, 11/04/2019, Additional history exists DTAP/TDAP/TD VACCINES (2 - Td or Tdap) 01/24/2033 01/24/2023 ZOSTER VACCINE (1 of 2) 2034 HIB VACCINE Aged Out No longer eligi ble based on patient's age to complete this topic MENINGOCOCCAL (Group B) VACCINE SHARED DECISION-MAKING Aged Out No longer eligible based on patient's age to complete this topic MENINGOCOCCAL GROUPS A/C/Y/W VACCINE Aged Out No longer eligible based on patient's age to complete this topic PNEUMOCOCCAL VACCINE Aged Out No long er eligible based on patient's age to complete this topic Insurance Advance Directives * Full Code (Latest Code Status on File) Date Activated Date Inactivated Comments 01/23/2023 6:31 AM 01/26/2023 3:10 PM * Full Code Date Activated Date Inactivated Comments 01/16/2023 7:18 AM 01/23/2023 6:31 AM Care Teams Flap Presser Relationship Specialty Start Date End Date Saurabh Gonzales MD [address] [place] [address] PCP - General 02/14/22
[2025-09-25 12:02] LABS: Hematocrit 39.9 % (37.0-47.0); Hemoglobin 13.5 g/dL (12.0-15.0); Mean Corpuscular HGB Conc 33.8 g/dl (32-36); Mean Corpuscular Hemoglobin 30.9 pg (26-34); Mean Corpuscular Volume 91.3 fl (80-100); Platelet Count Result 229 k/mm3 (150-375); Red Blood Count 4.37 M/mm3 (4.2-5.4); White Blood Count 5.7 K/mm3 (4.5-10.0)
[2025-09-25 12:31] LABS: Beta HCG Quantitative < 2.39 mIU/ML
[2025-09-26 07:09] LABS: FSH 10.0 mIU/mL (.); LH 7.4 mIU/mL (.)
== END 2025-09-25 11:11 | disposition home or self-care (01) ==
LOC: ANHLAB 11:11
PROVIDERS: PCP Family Medicine; Visit Provider Obstetrics & Gynecology
DX: N92.1 Excessive and frequent menstruation with irregular cycle (principal)
CPT/HCPCS: 36415; 83001; 83002; 84702; 85027